=== PATIENT | female | born 1995 | race Caucasian/White ===

== ENCOUNTER 2016-11-15 19:56 | Emergency (ER) | payer OTHER ==
[~2016-11-15] VITALS: Ht 165.1 cm; Wt 117.9 kg
[2016-11-15 21:30] VITALS: BP 108/53
[2016-11-15] MEDS ORDERED: CONTRAST GIVEN MC PRN (21:30)
[2016-11-15] MEDS ORDERED: IOHEXOL 300 MG/ML 75 ML VIAL IV ONE (22:00)
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
[2016-11-16] MEDS ORDERED: IBUP-1060 PO (00:06)
[2016-11-16] MEDS ORDERED: CYCL10TA2 PO (00:07)
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
--- NOTE | 2016-11-16 10:02 | EKG ---
[facility] [address] [place] [address] Test Date: 2016-11-15 Test Time: 21:42:04 Pat Name: DEEP BECKER Department: Room: Gender: F [employer] Supervisor: : [id number] Requested By: USMAN BARRAZA Order Number: [id number] Reading MD: Calderon Zacarias Measurements Intervals [place] Rate: 74 P: 23 [place]: 170 QRS: 12 QRSD: 86 T: 12 QT: 372 QTc: 413 Interpretive Statements SINUS RHYTHM INCOMPLETE RIGHT BUNDLE BRANCH BLOCK QRS(T) CONTOUR ABNORMALITY CONSIDER ANTEROSEPTAL MYOCARDIAL DAMAGE RI6.01 Unconfirmed report No previous ECG available for comparison Electronically Signed On 11-16-2016 15:07:21 CDT by Calderon Zacarias
== END 2016-11-16 00:14 | disposition home or self-care (01) ==
LOC: ER 19:56
DX: R07.89 Other chest pain (principal); R51 Headache; M25.561 Pain in right knee; G89.29 Other chronic pain; V43.52XA Car driver injured in collision with other type car in traffic accident, initial encounter; Y93.I9 Activity, other involving external motion; Y92.410 Unspecified street and highway as the place of occurrence of the external cause; Y99.8 Other external cause status
CPT/HCPCS: 70450; 71260; 72125; 73562; 81025; 93005; 99284; Q9967